=== PATIENT | male | born 1965 | race Caucasian/White ===

== ENCOUNTER 2020-09-27 12:08 | Outpatient (CLI) | payer BC, SELFPAY ==
[2020-09-27 17:28] LABS: Creatinine Urine 105.3 mg/dL
[2020-09-27 17:32] LABS: MALB Creatinine Ratio 8.4 mg/g (0-30); Microalbumin Urine Random 8.8 mg/L (0-16.7)
== END 2020-09-27 12:09 | disposition home or self-care (01) ==
LOC: ANHWCLAB 12:10
PROVIDERS: Visit Provider Internal Medicine Endocrinology, Diabetes & Metabolism
DX: E10.9 Type 1 diabetes mellitus without complications (principal)
CPT/HCPCS: 82043